=== PATIENT | male | born 1935 | race Caucasian/White ===

== ENCOUNTER 2021-09-26 14:48 | Emergency (ER) | payer MEDICARE, BC ==
[~2021-09-26 14:48] MED LIST: ASPIR 8181 MG PO; ASPIRIN EC81 MG PO; BACLOFEN10 MG PO; COREG 3.125M3.125 MG PO; COREG12.5 MG PO; FLAGYL500 MG PO; MIRALAX17 GM PO; NITROSTAT0.4 MG SL; NORCO 7.5-3251 EACH PO; NORVASC 5 MG TAB5 MG PO; NORVASC5 MG PO; OMEPRAZOLE20 MG PO; PRILOSEC20 MG PO; PROSCAR5 MG PO; TRAMADOL HCL50 MG PO; VITAMIN D32000 UNIT PO; VITAMIN D350000 UNIT PO; [UNRECOGNIZED DRUG - OTHER]
[2021-09-26 15:49] LABS: RED BLOOD COUNT 4.06 M/UL (4.20-5.50); WHITE BLOOD COUNT 7.8 K/UL (4.5-11.0)
[2021-09-26 16:35] LABS: BUN/CREATININE RATIO 15 (0-10)
== END 2021-09-26 18:45 | disposition home or self-care (01) ==
LOC: ER1 14:48
PROVIDERS: Student in an Organized Health Care Education/Training Program
DX: R07.9 Chest pain, unspecified (principal); E11.9 Type 2 diabetes mellitus without complications
CPT/HCPCS: 71045; 80048; 82550; 82553; 84484; 85025; 93005; 99285